=== PATIENT | female | born 1950 | race Caucasian/White ===

== ENCOUNTER → 2021-03-22 | Outpatient (CLI) | payer OTHER ==
[~2021-03-22] MED LIST: CALC500C16 PO; RAMI1CAP26 PO; VITA400T15 PO
[2021-03-22 13:46] VITALS: BP 160/86
--- NOTE | 2021-03-22 13:48 | REP ---
INDICATION: STEREO BX RIGHT CALCIFICATIONS . COMPARISON: 01/19/2021. TECHNIQUE: A specimen radiograph is performed FINDINGS: Multiple calcifications are seen in the obtained specimens. IMPRESSION: Successful stereotactic biopsy of microcalcifications 12 o'clock right breast. RECOMMENDATION: Clinical follow-up. <Electronically signed by Pascual Song > 03/22/21 1319
--- NOTE | 2021-03-22 13:48 | REP ---
INDICATION: STEREO BX RIGHT CALCIFICATIONS . COMPARISON: 01/19/2021. TECHNIQUE: ML and CC views right breast. FINDINGS: Following stereotactic biopsy of clustered microcalcifications at 12 o'clock right breast, mammographic images show a biopsy clip at the site of the calcifications. Many of the calcifications have been removed. IMPRESSION: Successful sampling of clustered microcalcifications 12 o'clock right breast. RECOMMENDATION: Clinical follow-up. <Electronically signed by Pascual Song > 03/22/21 [id number]
--- NOTE | 2021-03-23 17:34 | REP ---
INDICATION: STEREO BX RIGHT CALCIFICATIONS . COMPARISON: None. TECHNIQUE: This procedure is performed by ISAC Ravi, under the direct supervision of Dr. Song. The risks and benefits of the procedure were explained to the patient and informed consent was obtained both verbally and written. Directly prior to the start of the procedure, a formal timeout was done in the procedure room. The cranial caudal approach was utilized on the prone table. The right breast calcifications were localized using mammographic guidance. The skin was prepped and draped in a sterile fashion. Twelve ml of buffered lidocaine 1% lidocaine 10 mg/ml was used as a local anesthetic. FINDINGS: A 10 gauge mammotome biopsy device was inserted and advanced into the breast lesion and 6 core biopsy samples were obtained. A marker clip was placed at the biopsy site. The patient tolerated the procedure well and there were no immediate complications. After the appropriate amount of monitored convalescence the patient was discharged from the department. IMPRESSION: Technically successful right breast stereotactic biopsy yielding 6 core biopsy specimens <Electronically signed by Sagrario Shafer > 03/22/21 1421 <Electronically signed by Pascual Song > 03/23/21 [id number]
== END ==
LOC: M WHCPRO 07:25
PROVIDERS: ATTEND Nurse Practitioner Family
DX: D24.1 Benign neoplasm of right breast (principal)